=== PATIENT | male | born 1940 | race Hispanic/Latino ===

== ENCOUNTER 2020-10-25 09:18 | Day surgery (SDC) | payer OTHER, MEDICARE ==
[2020-10-21 10:23] LABS: Hemoglobin 12.8 gm/dl (11.8-15.2); Mean Corpuscular HGB Conc 34 % (32-34); Mean Corpuscular Volume 100 fl (84-94); Platelet Count 246 K/mm3 (140-440); Red Blood Count 3.79 M/mm3 (3.65-5.03); Red Cell Distribution Width 13.1 % (13.2-15.2)
[2020-10-21 10:44] LABS: BUN/Creatinine Ratio 15; Blood Urea Nitrogen 12 mg/dL (9-20); Calcium 9.3 mg/dL (8.4-10.2); Hemolysis Index 1
--- NOTE | 2020-10-21 15:05 | Anesthesia Consultation ---
Anesthesia Consult and Med Hx Date of service: 10/25/20 - Airway ROM Head & Neck: Adequate Mental/Hyoid Distance: Adequate Mallampati Class: Class III Intubation Access Assessment: Possibly Difficult - Pulmonary Exam CTA: Yes - Cardiac Exam Cardiac Exam: RRR - Pre-Operative Health Status ASA Pre-Surgery Classification: ASA3 Proposed Anesthetic Plan: General - Pulmonary Hx Smoking: Yes (AGE [age] THEN QUIT) Hx Respiratory Symptoms: Yes (hx COVID infection 05/2020; no hospitalization, symptoms resolved) - Cardiovascular System Hx Hypertension: No Hx Heart Attack/AMI: No Hx Percutaneous Transluminal Coronary Angioplasty (PTCA): No Hx Cardia Arrhythmia: No - Central Nervous System CVA: No Hx Back Pain: Yes - Gastrointestinal Hx Gastroesophageal Reflux Disease: No - Endocrine Hx Renal Disease: No Hx Liver Disease: No Hx Insulin Dependent Diabetes: No Hx Non-Insulin Dependent Diabetes: No Hx Hypothyroidism: Yes - Other Systems Hx Cancer: Yes (hx prostate ca) - Additional Comments Anesthesia Medical History Comments: No hx anesthetic complications. Off CoQ-10 since 10/14/20.
[~2020-10-25 09:18] MED LIST: ACETAMINOPHEN 500 MG TAB PO SCH; LACTATED RINGERS 1,000 ML IV SCH
[2020-10-25] MEDS ORDERED: ONDANSETRON 4 MG/2 ML INJ IV PRN (10:28)
[2020-10-25] MEDS ORDERED: HYDROmorphone 1 MG/1 ML INJ IV PRN ×2 (10:28)
--- NOTE | 2020-10-25 10:28 | Anesthesia Day of Surgery ---
Anesthesia Day of Surgery - Day of Surgery Patient Examined: Yes Patient H&P Reviewed: Yes Patient is NPO: Yes
[2020-10-25] MEDS ORDERED: BUPIVACAINE/PF (0.25%) 2.5 MG/ML 30 ML VIAL INFILTRATI ONE ×3 (10:31→12:37)
[2020-10-25] MEDS ORDERED: CELECOXIB 200 MG CAP PO NR (11:00)
[2020-10-25] MEDS ORDERED: propofoL 200 MG/20 ML VIAL IV ONE (11:29)
[2020-10-25] MEDS ORDERED: ONDANSETRON 4 MG/2 ML INJ ONE (11:29)
[2020-10-25] MEDS ORDERED: KETOROLAC 30 MG/1 ML INJ ONE (11:29)
[2020-10-25] MEDS ORDERED: ROCURONIUM 50 MG/5 ML INJ IV ONE (11:29)
[2020-10-25] MEDS ORDERED: dexAMETHasone 20 MG/5 ML VIAL ONE (11:29)
[2020-10-25] MEDS ORDERED: HYDROmorphone 1 MG/1 ML INJ ONE (11:29)
[2020-10-25] MEDS ORDERED: LIDOCAINE MPF (2%) 20 MG/1 ML VIAL 5 ML ONE (11:29)
[2020-10-25] MEDS ORDERED: NEOSTIGMINE 10MG/10 ML INJ MDV ONE (11:30)
[2020-10-25] MEDS ORDERED: GLYCOPYRROLATE 0.4 MG/2 ML INJ ONE (11:30)
[2020-10-25] MEDS ORDERED: ceFAZolin/STERILE WATER 2 GM/20 ML SYRINGE IV NR (11:41)
[2020-10-25] MEDS ORDERED: HEPARIN 5,000 UNIT/1 ML VIAL SUB-Q NR (11:45)
[2020-10-25] MEDS ORDERED: ePHEDrine SULFATE 50 MG/1 ML INJ ONE (12:21)
[2020-10-25] MEDS ORDERED: SODIUM CHLORIDE 0.9% IRR 1,500 ML BOTTLE IR ONE (12:38)
--- NOTE | 2020-10-25 13:49 | Procedure Note ---
Date of procedure: 10/25/20 Pre-op diagnosis: LIH Post-op diagnosis: same (Indirect) Procedure: Open repair of LIH Description of procedure: Pt was placed supine on the OR table. GETA was administered. Villasenor catheter was inserted. Abdomen was prepped and draped. Skin and SQ tissue at the incision site were infiltrated with 7 ml of 0.5% Marcaine. A curvilinear incision was made over the left suprapubic area. SQ tissue was transected with the Bovie. External oblique aponeurosis and external ring were exposed. The aponeurosis was incised over the inguinal canal. The spermatic cord was dissected off of the posterior inguinal canal. A Laci drain was passed about the cord. There was no evidence of a direct inguinal hernia. The cord was skeletonized which revealed an indirect hernia sac. The sac was dissected off of the cord structures. The sac was incised and was found to contain a portion of the sigmoid colon. The sac was ligated high with a purse string suture of 2-0 sik. The internal ring was then tightened by approximating the conjoined tendon to the shelving portion of Poupart's ligament with interrupted sutures of 0-Ethibond. Cord was replaced in the inguinal canal and the aponeurosis approximated with a running suture of 3-0 Vicryl. Wound was irrigated. Hemostasis was excellent. Skin was approximated with a running subcuticular suture of 4-0 Monocryl. Skin glue was applied. Pt was extubated in the OR. Pt was taken to PACU in stable condition. Anesthesia: GETA Surgeon: ANALISA DIAZ Estimated blood loss: minimal Pathology: none Specimen disposition: discarded Condition: stable Disposition: PACU
[2020-10-25 16:34] VITALS: BP 140/61
== END 2020-10-25 16:15 | disposition home or self-care (01) ==
LOC: OR 09:18
PROVIDERS: ATTEND Surgery
DX: K40.90 Unilateral inguinal hernia, without obstruction or gangrene, not specified as recurrent (principal); E03.9 Hypothyroidism, unspecified; M19.90 Unspecified osteoarthritis, unspecified site; E78.00 Pure hypercholesterolemia, unspecified; Z20.822 Contact with and (suspected) exposure to COVID-19; Z79.899 Other long term (current) drug therapy; Z87.891 Personal history of nicotine dependence; Z98.41 Cataract extraction status, right eye; Z98.42 Cataract extraction status, left eye; Z85.46 Personal history of malignant neoplasm of prostate; Z98.890 Other specified postprocedural states; Z72.89 Other problems related to lifestyle
CPT/HCPCS: 36415; 49505; 80048; 82962; 85027; J0690; J1100; J1170; J1644; J1885; J2405; J2704; J2710; J7120; U0003